=== PATIENT | female | born 1960 | race Caucasian/White ===

== ENCOUNTER 2020-11-14 12:55 | Emergency (ER) | payer OTHER ==
[~2020-11-14] VITALS: Ht 162.6 cm; Wt 66.2 kg
[2020-11-14] MEDS ORDERED: ENDOMETRIN100 MG VAG (13:40)
== END 2020-11-14 16:40 | disposition home or self-care (01) ==
LOC: ER 12:55
DX: S80.02XA Contusion of left knee, initial encounter (principal); W18.39XA Other fall on same level, initial encounter; Y93.89 Activity, other specified; Y92.098 Other place in other non-institutional residence as the place of occurrence of the external cause; Y99.8 Other external cause status